=== PATIENT | male | born 1945 | race Two or more races ===

== ENCOUNTER 2023-04-27 23:40 | Emergency (ER) | payer OTHER ==
[~2023-04-27] VITALS: Ht 160 cm; Wt 59.0 kg
[2023-04-28] MEDS ORDERED: NIFEDIPINE20 MG (00:02)
[2023-04-28] MEDS ORDERED: COZAAR100 MG PO (00:02)
[2023-04-28] MEDS ORDERED: ATIVAN1 M1 PO (00:02)
[2023-04-28] MEDS ORDERED: ECOTRIN81 MG (00:02)
[2023-04-28] MEDS ORDERED: ELIQUIS5 MG PO (00:03)
[2023-04-28] MEDS ORDERED: HYDRALAZINE HC100 MG PO (00:03)
[2023-04-28] MEDS ORDERED: JARDIANCE25 MG PO (00:03)
[2023-04-28] MEDS ORDERED: ENVARSUS XR1 MG (00:04)
[2023-04-28] MEDS ORDERED: CARVEDILOL ER40 MG (00:04)
[2023-04-28] MEDS ORDERED: GLUMETZA500 MG (00:05)
[2023-04-28] MEDS ORDERED: GLIPIZIDE ER10 MG PO (00:05)
[2023-04-28] MEDS ORDERED: MYCOPHENOLATE500 MG PO (00:05)
[2023-04-28] MEDS ORDERED: TRADJENTA5 MG PO (00:06)
[2023-04-28 03:41] LABS: HEMATOCRIT 43.9 % (39.0-48.0); HEMOGLOBIN 14.9 g/dL (13-16.00); MEAN CORPUSCULAR HEMOGLOBIN 31.3 pg (27.00-32.0); MEAN CORPUSCULAR HGB CONC 34.1 g/dl (32.0-36.0); PLATELET COUNT 255 K/uL (150-450); RED BLOOD COUNT 4.77 M/uL (4.00-6.00); RED CELL DISTRIBUTION WIDTH 14.1 % (11.5-14.5)
[2023-04-28 04:11] LABS: BILIRUBIN TOTAL 0.67 mg/dL (0.3-1.2); CALCIUM 9.7 mg/dL (8.5-10.1); CREATININE SERUM 1.01 mg/dL (0.70-1.30); GFR 71.26; GLOBULINA 4.4 G/DL (2.4-3.5); POTASSIUM 4.26 mEq/L (3.5-5.1); TOTAL PROTEIN 8.4 gm/dL (6.4-8.2)
== END 2023-04-28 05:34 | disposition home or self-care (01) ==
LOC: ER 23:41
DX: R53.81 Other malaise (principal); R06.02 Shortness of breath; Z20.822 Contact with and (suspected) exposure to COVID-19; Z91.041 Radiographic dye allergy status